=== PATIENT | male | born 1975 | race Hispanic/Latino ===

== ENCOUNTER → 2017-01-12 | Day surgery (SDC) | payer OTHER ==
[~2017-01-12] VITALS: Ht 185.4 cm; Wt 78.5 kg
[~2017-01-12] MED LIST: 0.9% Sodium Chloride 1,000 ML IV PRN; ACET325T51 PO; IBUP200C PO; MULT-1018 PO; OMEP20CA11 PO; Sodium Chloride LOK Flush 10 mL Syringe IV PRN; fentaNYL-PF 50 mCg/mL 2 mL Inj IVPUSH PRN
[2017-01-12 09:29] VITALS: BP 122/72; PULSE 66; RESP 16; O2SAT 100
[2017-01-12 10:14] VITALS: BP 107/61; PULSE 52; RESP 16; O2SAT 98
[2017-01-12 10:22] VITALS: BP 106/59; PULSE 58; RESP 16; O2SAT 100
[2017-01-12 10:32] VITALS: BP 105/68; PULSE 56; RESP 16; O2SAT 99
--- NOTE | 2017-01-12 10:35 | ENDO ---
[address] [address] ENDOSCOPY PROCEDURE PATIENT: MEENU POWER : 1975 MR#: [id number] ADMIT: 01/12/2017 JOB ID: [id number] DATE: 01/12/2017 PRIMARY PROVIDER: Thaddeus Lopez MD PROCEDURE: Colonoscopy. INDICATIONS: A 41-year-old male with a family history of colon cancer reporting for colon cancer screening. EQUIPMENT: PCF-H190AL SEDATION: 1. Versed 5 mL. 2. Fentanyl 100 mcg. COMPLICATIONS: None identified. BOWEL PREP: Excellent. PROCEDURE INFO: After the risks and benefits were explained, written and verbal informed consent was obtained. The patient was brought into the endoscopy suite and placed into the left lateral decubitus position. Sedation was achieved as above. A digital rectal examination was accomplished. No pathology appreciated. The scope was introduced into the rectum and advanced to the cecum as identified by the appendiceal orifice and ileocecal valve. The scope was slowly withdrawn to carefully examine the mucosa for any defects or lesions. Retroflexed views were accomplished in the rectum. The colon was decompressed. The scope removed the patient who tolerated the procedure well. FINDINGS: No significant polyps, mass, lesions, or inflammatory features identified throughout. ENDOSCOPIC DIAGNOSIS: Visually normal colonoscopy to cecum. RECOMMENDATIONS: Repeat colonoscopy five years' time considering family history.
== END | disposition home or self-care (01) ==
LOC: END 00:26
PROVIDERS: ATTEND Internal Medicine Gastroenterology
DX: Z12.11 Encounter for screening for malignant neoplasm of colon (principal); Z80.0 Family history of malignant neoplasm of digestive organs; M72.2 Plantar fascial fibromatosis
CPT/HCPCS: 99153; G0105; G0500; J2250; J3010; J7030